=== PATIENT | female | born 1975 | race Caucasian/White ===

== ENCOUNTER 2018-12-29 17:07 | Emergency (ER) | payer OTHER ==
[~2018-12-29] VITALS: Ht 172.7 cm; Wt 110.0 kg
[2018-12-29 18:44] VITALS: BP 139/88
[2018-12-29] MEDS ORDERED: HYDROCO/APAP1 TA9 PO (18:55)
== END 2018-12-29 19:10 | disposition home or self-care (01) | DRG 605 ==
LOC: ED 17:07
PROC: 2W3GX1Z Immobilization of Right Thumb using Splint (ICD-10-PCS; principal; 2018-12-29)
DX: S60.011A Contusion of right thumb without damage to nail, initial encounter (principal); F17.210 Nicotine dependence, cigarettes, uncomplicated; W23.1XXA Caught, crushed, jammed, or pinched between stationary objects, initial encounter; Y92.89 Other specified places as the place of occurrence of the external cause; Y99.0 Civilian activity done for income or pay